=== PATIENT | male | born 1930 | race Caucasian/White ===

== ENCOUNTER 2017-01-05 12:36 | Observation (INO) | payer MEDICARE, OTHER ==
[~2017-01-05] VITALS: Ht 177.8 cm; Wt 94.2 kg
[~2017-01-05 12:36] MED LIST: ASPI-496 PO; ATOR20TA PO; ENAL20TA PO; FLUT16SP2 INH; HYDR25TA6 PO; ISOS30TA19 PO; METF500T4 PO; METO25TA35 PO; NIAC500C8 PO; POTA15TA9 PO
[2017-01-05] MEDS ORDERED: SODIUM CHLORIDE FLUSH 10ML SYR IVF ONE (13:00)
[2017-01-05] MEDS ORDERED: NITROGLYCERIN SINGLE TAB 0.4 MG SL PRN (13:00)
[2017-01-05] MEDS ORDERED: MORPHINE SULFATE 4 MG/ML, 1ML IVPush PRN ×2 (13:00→18:30)
[2017-01-05] MEDS: PLEASE ENTER HEIGHT AND WEIGHT MC SCH ×2 (13:00→19:22)
[2017-01-05 13:36] LABS: BLOOD UREA NITROGEN 34 mg/dL (7-18)
[2017-01-05 13:40] LABS: IS PT STATUS REG ER OR PRE ER? YES
[2017-01-05] MEDS ORDERED: NITROGLYCERIN SINGLE TAB 0.4 MG SL ONE (13:58)
[2017-01-05] MEDS ORDERED: MORPHINE SULFATE 4 MG/ML, 1ML ONE (13:58)
[2017-01-05 14:59] LABS: HEMOGLOBIN 11.1 g/dL (13.7-18.0)
[2017-01-05 15:04] LABS: DIFF TOTAL CELLS COUNTED 100 CELL DIFF
[2017-01-05 15:07] LABS: VERIFY COUNTS? YES
[2017-01-05 15:08] LABS: GIANT PLATELETS 1+; LARGE PLATELETS 2+
[2017-01-05 15:09] LABS: ANISOCYTOSIS 2+; MICROCYTOSIS 1+
[2017-01-05 15:10] LABS: ECHINOCYTES 1+; OVALOCYTES 2+
[2017-01-05 15:11] LABS: SCHISTOCYTES 1+
[2017-01-05] MEDS ORDERED: DIPHENHYDRAMINE 50 MG/ML, 1ML ONE (15:20)
[2017-01-05] MEDS ORDERED: DIPHENHYDRAMINE 50 MG/ML, 1ML IVPush ONE (15:30)
[2017-01-05] MEDS ORDERED: OMNIPAQUE 350 MG/ML, 100ML BOTTLE ONE (16:36)
[2017-01-05] MEDS ORDERED: NS + 20MEQ KCL 1,000 ML IV SCH (18:06)
[2017-01-05] MEDS ORDERED: ONDANSETRON 2MG/ML, 2ML IVP PRN (18:30)
[2017-01-05] MEDS ORDERED: HYDROcodone/APAP 5/325 TABLET PO PRN (18:30)
[2017-01-05] MEDS ORDERED: NITROGLYCERIN 0.4 MG BOTTLE (25 TABS) SL PRN ×2 (18:30)
[2017-01-05] MEDS ORDERED: ACETAMINOPHEN 325 MG TABLET PO PRN (18:30)
[2017-01-05] MEDS ORDERED: NITROGLYCERIN 0.4 MG/SPRAY SL PRN (18:30)
[2017-01-05] MEDS ORDERED: ONDANSETRON ODT 4 MG PO PRN (18:30)
[2017-01-05] MEDS ORDERED: ENALAPRILAT 1.25 MG/ML, 2ML IVPush PRN (18:30)
[2017-01-05] MEDS ORDERED: ENOXAPARIN 40 MG/0.4 ML SQ SCH (18:30)
[2017-01-05 19:44] LABS: IS PT STATUS REG ER OR PRE ER? NO
[2017-01-05 20:26] VITALS: BP 163/78
[2017-01-05] MEDS ORDERED: POTASSIUM CITRATE 30 MEQ PO SCH (21:00)
[2017-01-05] MEDS ORDERED: ATORVASTATIN 20 MG TABLET PO SCH (21:00)
[2017-01-06 01:32] LABS: IS PT STATUS REG ER OR PRE ER? NO
[2017-01-06 02:00] VITALS: BP 143/73
[2017-01-06] MEDS ORDERED: METOPROLOL SUCCINATE 50 MG TAB.ER.24H PO SCH (06:00)
[2017-01-06] MEDS ORDERED: ASPIRIN 325 MG TABLET EC PO SCH (06:00)
[2017-01-06 06:03] LABS: HEMOGLOBIN 11.4 g/dL (13.7-18.0)
[2017-01-06 06:04] LABS: ASPARTATE AMINO TRANSFERASE 14 U/L (15-37); BLOOD UREA NITROGEN 25 mg/dL (7-18)
[2017-01-06 06:53] LABS: DIFF TOTAL CELLS COUNTED 100 CELL DIFF
[2017-01-06 07:16] LABS: ANISOCYTOSIS 2+; ECHINOCYTES 1+; MICROCYTOSIS 1+; OVALOCYTES 2+; POIKILOCYTOSIS 1+; VERIFY COUNTS? YES
[2017-01-06 07:17] LABS: SCHISTOCYTES 1+
[2017-01-06 07:18] LABS: GIANT PLATELETS 1+; LARGE PLATELETS 2+
[2017-01-06] MEDS ORDERED: OMEPRAZOLE 20 MG CAPSULE.DR PO SCH (07:30)
[2017-01-06 07:38] VITALS: BP 154/83
[2017-01-06] MEDS ORDERED: SENNA/DOCUSATE TABLET PO SCH (09:00)
[2017-01-06] MEDS ORDERED: ENALAPRIL 20MG TABLET PO SCH (09:00)
[2017-01-06] MEDS ORDERED: HYDROCHLOROTHIAZIDE 25 MG TABLET PO SCH (09:00)
== END 2017-01-06 15:36 | disposition home or self-care (01) ==
LOC: ED 14:57 → EDIP 17:12 → INTOOBSV 17:12 → 5SO 18:37 → DCLOUNGE 01-06 15:11
PROVIDERS: ADMIT Family Medicine; ATTEND Family Medicine
DX: M54.2 Cervicalgia (principal); E11.9 Type 2 diabetes mellitus without complications; I10 Essential (primary) hypertension; E78.5 Hyperlipidemia, unspecified; I48.0 Paroxysmal atrial fibrillation; D64.9 Anemia, unspecified; D69.6 Thrombocytopenia, unspecified; E78.00 Pure hypercholesterolemia, unspecified; I25.10 Atherosclerotic heart disease of native coronary artery without angina pectoris; I73.9 Peripheral vascular disease, unspecified; Z87.891 Personal history of nicotine dependence; Z95.0 Presence of cardiac pacemaker
CPT/HCPCS: 36415; 70498; 71010; 80048; 80053; 80061; 82040; 82962; 83036; 84484; 85025; 93005; 96361; 96372; 96374; 99285; G0378; J1200; J1650; J3480; Q9967

== ENCOUNTER 2017-01-30 23:03 | Observation (INO) | payer MEDICARE, OTHER ==
[~2017-01-30] VITALS: Ht 177.8 cm; Wt 93.0 kg
[2017-01-30] MEDS ORDERED: OXYC-302 PO (23:16)
[2017-01-30] MEDS ORDERED: HYDR12.58 PO (23:16)
[2017-01-30] MEDS ORDERED: HYDROmorphone 1 MG/ML, 1ML IM ONE (23:30)
[2017-01-30] MEDS ORDERED: HYDROmorphone 1 MG/ML, 1ML ONE (23:37)
[2017-01-30 23:55] LABS: BLOOD UREA NITROGEN 42 mg/dL (7-18)
[2017-01-31 00:01] LABS: HEMOGLOBIN 11.7 g/dL (13.7-18.0)
[2017-01-31 00:02] LABS: DIFF TOTAL CELLS COUNTED 100 CELL DIFF
[2017-01-31 00:05] LABS: VERIFY COUNTS? YES
[2017-01-31 00:06] LABS: ANISOCYTOSIS 1+; LARGE PLATELETS 1+; MICROCYTOSIS 1+; OVALOCYTES 1+
[2017-01-31] MEDS ORDERED: ASPIRIN 325 MG TABLET ONE (02:57)
[2017-01-31] MEDS ORDERED: OXYcodone/APAP 5/325MG TABLET ONE (03:20)
[2017-01-31] MEDS ORDERED: OXYcodone/APAP 5/325MG TABLET PO PRN (03:30)
[2017-01-31 03:43] VITALS: BP 157/88
[2017-01-31] MEDS: SODIUM CHLORIDE 0.9% 1,000 ML IV SCH ×3 (05:15→22:53)
[2017-01-31] MEDS ORDERED: POLYETHYLENE GLYCOL 17 GM PACKET PO PRN (05:30)
[2017-01-31] MEDS ORDERED: ACETAMINOPHEN 325 MG TABLET PO PRN (05:30)
[2017-01-31 06:41] VITALS: BP 168/71
[2017-01-31 06:54] LABS: BLOOD UREA NITROGEN 39 mg/dL (7-18)
[2017-01-31] MEDS: INSULIN REGULAR 100 UNITS/ML, 3ML VIAL SQ-INSULIN SCH ×4 (07:00→21:00)
[2017-01-31] MEDS: OXYcodone/APAP 5/325MG TABLET PO SCH ×4 (08:25→22:46)
[2017-01-31] MEDS: ENALAPRIL 20MG TABLET PO SCH (08:28)
[2017-01-31] MEDS: ASPIRIN 81 MG TABLET EC PO SCH (08:28)
[2017-01-31] MEDS: HYDROCHLOROTHIAZIDE 25 MG TABLET PO SCH (08:28)
[2017-01-31] MEDS: SENNA/DOCUSATE TABLET PO SCH (08:29)
[2017-01-31] MEDS: metFORMIN 500 MG TABLET PO SCH ×2 (08:29→22:46)
[2017-01-31] MEDS: HEPARIN 5,000 UNITS/ML, 1ML SQ SCH ×2 (09:00→16:35)
[2017-01-31] MEDS: HYDROmorphone 2 MG/ML, 1ML IV PRN (11:41)
[2017-01-31 14:05] VITALS: BP 120/63
[2017-01-31] MEDS: KETOROLAC 30 MG/1 ML IVPush SCH ×2 (14:30→22:47)
[2017-01-31] MEDS ORDERED: LIDODERM 5% PATCH TD ONE (15:00)
[2017-01-31 19:47] VITALS: BP 135/75
[2017-01-31] MEDS ORDERED: ATORVASTATIN 20 MG TABLET PO SCH (21:00)
[2017-02-01] MEDS: HYDROmorphone 2 MG/ML, 1ML IV PRN (02:16)
[2017-02-01] MEDS: HEPARIN 5,000 UNITS/ML, 1ML SQ SCH ×3 (02:16→10:01)
[2017-02-01 02:59] VITALS: BP 170/88
[2017-02-01] MEDS: KETOROLAC 30 MG/1 ML IVPush SCH ×2 (04:37→10:00)
[2017-02-01] MEDS: SODIUM CHLORIDE 0.9% 1,000 ML IV SCH ×2 (04:37→11:46)
[2017-02-01] MEDS: OXYcodone/APAP 5/325MG TABLET PO SCH ×2 (06:51→11:46)
[2017-02-01 06:53] VITALS: BP 144/68
[2017-02-01] MEDS: INSULIN REGULAR 100 UNITS/ML, 3ML VIAL SQ-INSULIN SCH ×2 (07:00→11:00)
[2017-02-01 08:13] LABS: BLOOD UREA NITROGEN 32 mg/dL (7-18)
[2017-02-01] MEDS: SENNA/DOCUSATE TABLET PO SCH (10:00)
[2017-02-01] MEDS: ENALAPRIL 20MG TABLET PO SCH (10:01)
[2017-02-01] MEDS: HYDROCHLOROTHIAZIDE 25 MG TABLET PO SCH (10:01)
[2017-02-01] MEDS: ASPIRIN 81 MG TABLET EC PO SCH (10:01)
[2017-02-01] MEDS: metFORMIN 500 MG TABLET PO SCH (10:01)
[2017-02-01 14:20] VITALS: BP 128/64
[2017-02-01] MEDS ORDERED: KETO10TA PO (14:46)
[2017-02-06] MEDS ORDERED: SENN1TAB7 PO (13:34)
[2017-02-06] MEDS ORDERED: OXYC-302 PO ×2 (13:34→16:07)
== END 2017-02-01 15:15 | disposition home or self-care (01) ==
LOC: ED 23:59 → EDIP 01-31 02:07 → INTOOBSV 01-31 02:07 → 4NOR 01-31 03:11 → DCLOUNGE 02-01 14:33
PROVIDERS: ADMIT Family Medicine; ATTEND Family Medicine
DX: M25.552 Pain in left hip (principal); I12.9 Hypertensive chronic kidney disease with stage 1 through stage 4 chronic kidney disease, or unspecified chronic kidney disease; E11.22 Type 2 diabetes mellitus with diabetic chronic kidney disease; N18.9 Chronic kidney disease, unspecified; E78.5 Hyperlipidemia, unspecified; D64.9 Anemia, unspecified; N20.0 Calculus of kidney; R41.0 Disorientation, unspecified; R01.1 Cardiac murmur, unspecified; I48.91 Unspecified atrial fibrillation; Z87.891 Personal history of nicotine dependence; Z95.0 Presence of cardiac pacemaker; W19.XXXA Unspecified fall, initial encounter
CPT/HCPCS: 36415; 72190; 80048; 81003; 82040; 82962; 85025; 96361; 96372; 96374; 96375; 96376; 97116; 97162; 97530; 99285; G0378; J1170; J1644; J1885; J7030

== ENCOUNTER 2017-03-25 10:33 | Emergency (ER) | payer MEDICARE, OTHER ==
[~2017-03-25] VITALS: Ht 177.8 cm; Wt 87.2 kg
[~2017-03-25 10:33] MED LIST changes: +HYDR12.58 PO; +KETO10TA PO; +OXYC-302 PO; +SENN1TAB7 PO
[2017-03-25] MEDS ORDERED: OXYC5CAP4 PO (11:21)
[2017-03-25] MEDS ORDERED: OMEP40CA6 PO (11:21)
[2017-03-25] MEDS ORDERED: METO25TA35 PO (11:21)
[2017-03-25] MEDS ORDERED: MELO-190 PO (11:23)
[2017-03-25] MEDS ORDERED: BUPIVACAINE/PF 0.5% ONE (11:56)
[2017-03-25] MEDS ORDERED: LIDOCAINE 1%, 20ML ONE (11:56)
[2017-03-25] MEDS ORDERED: BUPIVACAINE/PF 0.5% INFIL ONE (12:00)
[2017-03-25] MEDS ORDERED: LIDOCAINE 1%, 10ML INFIL ONE (12:00)
[2017-03-25 13:38] VITALS: BP 111/57
== END 2017-03-25 13:40 | disposition home or self-care (01) ==
LOC: ED 11:32
DX: M79.652 Pain in left thigh (principal); E78.00 Pure hypercholesterolemia, unspecified; I10 Essential (primary) hypertension; I25.10 Atherosclerotic heart disease of native coronary artery without angina pectoris; Z87.891 Personal history of nicotine dependence; Z90.49 Acquired absence of other specified parts of digestive tract; Z95.0 Presence of cardiac pacemaker; Z88.2 Allergy status to sulfonamides; Z91.041 Radiographic dye allergy status
CPT/HCPCS: 64450

== ENCOUNTER 2017-03-28 09:52 | Observation (INO) | payer MEDICARE, OTHER ==
[~2017-03-28] VITALS: Ht 177.8 cm; Wt 85.6 kg
[~2017-03-28 09:52] MED LIST changes: +MELO-190 PO; +OMEP40CA6 PO; +OXYC5CAP4 PO
[2017-03-28 10:48] LABS: BLOOD UREA NITROGEN 16 mg/dL (7-18)
[2017-03-28] MEDS ORDERED: PREGABALIN 25 MG CAPSULE PO STA (11:38)
[2017-03-28] MEDS ORDERED: methylPREDNISolone SOD SUCC 125 MG/2 ML IVPush ONE (12:00)
[2017-03-28] MEDS ORDERED: methylPREDNISolone SOD SUCC 125 MG/2 ML ONE (12:02)
[2017-03-28] MEDS ORDERED: OXYcodone/APAP 10/325MG TABLET ONE (12:48)
[2017-03-28] MEDS ORDERED: FENTANYL PF 100 MCG/2ML ONE (12:48)
[2017-03-28] MEDS ORDERED: FENTANYL PF 100 MCG/2ML IV ONE (13:00)
[2017-03-28] MEDS ORDERED: OXYcodone/APAP 10/325MG TABLET PO ONE (13:00)
[2017-03-28 13:54] VITALS: BP 157/85
[2017-03-28] MEDS ORDERED: OXYcodone IR 5MG TABLET PO PRN (14:30)
[2017-03-28] MEDS ORDERED: ONDANSETRON 2MG/ML, 2ML IVPush PRN (14:30)
[2017-03-28] MEDS ORDERED: ENOXAPARIN 40 MG/0.4 ML SQ SCH (14:30)
[2017-03-28] MEDS ORDERED: ENALAPRILAT 1.25 MG/ML, 2ML IVPush PRN (14:30)
[2017-03-28] MEDS ORDERED: ACETAMINOPHEN 325 MG TABLET PO PRN (14:30)
[2017-03-28] MEDS: KETOROLAC 30 MG/1 ML IVPush SCH ×2 (14:30→19:59)
[2017-03-28] MEDS ORDERED: DOCUSATE 100 MG CAPSULE PO PRN (14:30)
[2017-03-28 19:47] VITALS: BP 163/78
[2017-03-28] MEDS: SODIUM CHLORIDE FLUSH 3ML SYRINGE IVF SCH (19:59)
[2017-03-29] MEDS: KETOROLAC 30 MG/1 ML IVPush SCH ×2 (03:10→08:17)
[2017-03-29 03:26] VITALS: BP 181/91
[2017-03-29 05:24] VITALS: BP 149/79
[2017-03-29 06:08] LABS: BLOOD UREA NITROGEN 27 mg/dL (7-18)
[2017-03-29 07:23] VITALS: BP 130/74
[2017-03-29] MEDS: SODIUM CHLORIDE FLUSH 3ML SYRINGE IVF SCH (08:17)
[2017-03-29] MEDS ORDERED: GABAPENTIN 300 MG CAPSULE PO SCH (09:00)
[2017-03-29] MEDS ORDERED: ENALAPRIL 20MG TABLET PO SCH (09:00)
[2017-03-29] MEDS ORDERED: METOPROLOL TARTRATE 25 MG TABLET PO SCH (09:00)
[2017-03-29] MEDS ORDERED: ASPIRIN 81 MG TABLET EC PO SCH (09:00)
[2017-03-29] MEDS ORDERED: HYDROCHLOROTHIAZIDE 25 MG TABLET PO SCH (09:00)
[2017-03-29] MEDS ORDERED: OMEPRAZOLE 20 MG CAPSULE.DR PO SCH (09:00)
[2017-03-29] MEDS ORDERED: PRED20TA PO (10:08)
[2017-03-29] MEDS ORDERED: GABA300C10 PO (10:08)
[2017-03-29] MEDS ORDERED: IBUP200T48 PO (11:21)
[2017-03-29] MEDS ORDERED: ATORVASTATIN 20 MG TABLET PO SCH (21:00)
== END 2017-03-29 12:20 | disposition home or self-care (01) ==
LOC: ED 10:24 → INTOOBSV 11:40 → EDIP 11:40 → 3NE 13:53
PROVIDERS: ADMIT Hospitalist; ATTEND Hospitalist
DX: G57.12 Meralgia paresthetica, left lower limb (principal); E11.9 Type 2 diabetes mellitus without complications; I10 Essential (primary) hypertension; I25.10 Atherosclerotic heart disease of native coronary artery without angina pectoris; M19.90 Unspecified osteoarthritis, unspecified site; K76.9 Liver disease, unspecified; Z87.891 Personal history of nicotine dependence; Z99.3 Dependence on wheelchair
CPT/HCPCS: 36415; 73502; 80048; 81003; 82040; 85025; 85610; 96374; 96375; 96376; 97162; 97165; 99285; G0378; J1885; J2930; J3010; J7512

== ENCOUNTER → 2017-06-02 | Outpatient (CLI) | payer MEDICARE, OTHER ==
[~2017-06-02] MED LIST changes: +GABA300C10 PO; +IBUP200T48 PO; +PRED20TA PO
== END | disposition home or self-care (01) ==
LOC: CFH 09:31
PROVIDERS: ATTEND Internal Medicine Cardiovascular Disease
DX: I08.0 Rheumatic disorders of both mitral and aortic valves (principal); I73.9 Peripheral vascular disease, unspecified; I71.9 Aortic aneurysm of unspecified site, without rupture
CPT/HCPCS: 93306

== ENCOUNTER → 2017-06-16 | Outpatient (CLI) | payer MEDICARE, OTHER ==
[~2017-06-16] MED LIST changes: -ISOS30TA19 PO; +ISOS30TA21 PO; -MELO-190 PO; +MELO7.5T31 PO; +OXYC5CAP2 PO; -OXYC5CAP4 PO
== END | disposition home or self-care (01) ==
LOC: CVU 06:36
PROVIDERS: ATTEND Internal Medicine Cardiovascular Disease
DX: I70.203 Unspecified atherosclerosis of native arteries of extremities, bilateral legs (principal); I83.891 Varicose veins of right lower extremity with other complications; S81.801D Unspecified open wound, right lower leg, subsequent encounter; X58.XXXD Exposure to other specified factors, subsequent encounter
CPT/HCPCS: 93970; 93971; 93978